=== PATIENT | female | born 1955 | race Caucasian/White ===

== ENCOUNTER 2018-02-02 06:21 | Day surgery (SDC) | payer BC ==
[2018-02-02 06:52] VITALS: O2SAT 100
[2018-02-02] MEDS ORDERED: Propofol 10 mg/ml Inj (20 ML) ONE (08:05)
--- NOTE | 2018-02-02 08:05 | CP.SDSHP ---
Same Day Surgery H & P - History Proposed Procedure: EGD Pre-Op Diagnosis: SEE NOTES - Previous Medical/Surgical History Cardiac: Hypertension Pulmonary: Asthma, Bronchitis Misc: Other Pain: 4.Moderate Pain - Allergies Allergies: Allergies SEASONAL Allergy (Uncoded 02/01/18 11:27) COUGH - Physical Exam General Appearance: N Vital Signs: Vital Signs 02/02/18 06:43 Temperature 97.3 F L Pulse Rate 80 Respiratory 20 Rate Blood Pressure 123/76 O2 Sat by Pulse 100 Oximetry Neuro: WNL GI: Other - {Optional Preform as Required} Breast: WNL Integument: WNL : WNL Ortho: Other ENT: WNL - Impression Pt. Evaluated Today:Candidate for Anesthesia & Procedure: Yes - Date & Time Time: 08:05 Short Stay Discharge - Short Stay Discharge Admitting Diagnosis/Reason for Visit: ACUTE GASTRIC ULCER WITHOUT HEMORRHAGE OR PERFORAT Disposition: HOME/ ROUTINE
[2018-02-02] MEDS ORDERED: Lactated Ringer's 500 ML IV SCH (08:15)
[2018-02-02 08:36] VITALS: TEMP 97.5
[2018-02-02] MEDS ORDERED: Belladonna-Phenobarbital PO ONE (08:40)
[2018-02-02 12:54] VITALS: BP 93/70; PULSE 73; RESP 13
== END 2018-02-02 12:52 | disposition home or self-care (01) ==
LOC: C.ENDO 06:21
PROVIDERS: ATTEND Specialist
DX: K25.3 Acute gastric ulcer without hemorrhage or perforation (principal); K44.9 Diaphragmatic hernia without obstruction or gangrene; K31.9 Disease of stomach and duodenum, unspecified; J45.909 Unspecified asthma, uncomplicated; I10 Essential (primary) hypertension; M19.90 Unspecified osteoarthritis, unspecified site
CPT/HCPCS: 43239; 88305; 88342; J2001; J2704; J7120